=== PATIENT | male | born 1995 | race American Indian/Alaskan Native ===

== ENCOUNTER 2019-12-17 19:29 | Emergency (ER) | payer SELFPAY ==
[2019-12-18] MEDS ORDERED: ACETAMINOPHEN 500 MG TAB PO ONE (00:40)
[2019-12-18] MEDS ORDERED: IBUPROFEN 600 MG TAB PO ONE (00:40)
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
[2019-12-18 05:15] VITALS: BP 122/87
== END 2019-12-18 02:43 | disposition home or self-care (01) ==
LOC: ED 19:29
DX: M62.838 Other muscle spasm (principal); M62.830 Muscle spasm of back; M54.5 Low back pain; Z79.899 Other long term (current) drug therapy; Z98.890 Other specified postprocedural states; V49.49XA Driver injured in collision with other motor vehicles in traffic accident, initial encounter; Y92.410 Unspecified street and highway as the place of occurrence of the external cause; Y93.89 Activity, other specified; Y99.8 Other external cause status
CPT/HCPCS: 72100; 72125